=== PATIENT | male | born 1975 | race Caucasian/White ===

== ENCOUNTER 2017-01-04 08:19 | Day surgery (SDC) | payer BC ==
--- NOTE | 2017-01-02 04:51 | HP ---
DATE OF ADMISSION: CHIEF COMPLAINT: Rectal bleed. HISTORY OF PRESENT ILLNESS: The patient is a 41-year-old male who comes to the office complaining of painful bowel movements lately. He describes sharp pain at the anal opening. Last colonoscopy was 2008. He does have a personal history of colon polyps in the past. PAST MEDICAL HISTORY: Gout. PAST SURGICAL HISTORY: See list. MEDICATIONS: 1. Allopurinol. 2. Valier. 3. Indomethacin. ALLERGIES: None. PHYSICAL EXAM: HEENT is normocephalic. Sclerae anicteric. Chest is clear. HEART: Regular rate and rhythm. ABDOMEN: Soft, nontender, nondistended. IMPRESSION: A 41-year-old male with rectal bleeding. PLAN: Will schedule patient for colonoscopy on 01/04. The risks of bleeding and bowel perforation were discussed. The patient understands and wishes to proceed.
[2017-01-02 15:23] VITALS: BMI 36.9
[~2017-01-04 08:19] MED LIST: LACTATED RINGERS 1,000 ML IV SCH; LIDOCAINE 1% 20 ML VIAL (10MG/ML) FOR IV START INTRADERMA PRN
[2017-01-04 08:48] VITALS: RESP 18; TEMP 97.7
[2017-01-04] MEDS ORDERED: LACTATED RINGERS 1,000 ML IV ONE (08:49)
[2017-01-04] MEDS ORDERED: fentaNYL (PF) 50 MCG/ML 2 ML AMP ONE (09:07)
[2017-01-04] MEDS ORDERED: PROPOFOL 10 MG/ML 20 ML VIAL IV ONE (09:07)
[2017-01-04] MEDS ORDERED: MIDAZOLAM 2 MG/2 ML VIAL ONE (09:07)
--- NOTE | 2017-01-04 09:20 | P.PCN ---
Date of Procedure: 01/04/17 Procedure(s) Performed: PREOPERATIVE DIAGNOSIS: Rectal bleeding POSTOPERATIVE DIAGNOSIS: Posterior anal fissure PROCEDURE: Colonoscopy ANESTHESIA: MAC SURGEON: Tyron Good M.D. SPECIMENS: none ENDOSCOPIC PROCEDURE: The patient was placed on the endoscopy table in the left decubitus position. The Olympus colonoscope was inserted into the anus and passed under direct visualization to the base of the cecum. The appendiceal orifice was visualized. From that point the scope was slowly withdrawn inspecting all surfaces carefully. There were no neoplastic inflammatory or polypoid lesions throughout the cecum, ascending, transverse, descending, sigmoid and rectum. There was no diverticulosis noted. Digital rectal examination revealed a small anal fissure. The patient was taken to the recovery room in stable condition per anesthesia guidelines. RECOMMENDATIONS: Increase fiber. Prescription for nitroglycerin ointment.
[2017-01-04 09:53] VITALS: BP 126/75; PULSE 74
== END 2017-01-04 10:08 | disposition home or self-care (01) ==
LOC: ORWHC2ENDO 08:19
PROVIDERS: ATTEND Surgery
DX: K60.2 Anal fissure, unspecified (principal); M10.9 Gout, unspecified; Z79.1 Long term (current) use of non-steroidal anti-inflammatories (NSAID); Z79.891 Long term (current) use of opiate analgesic; Z79.899 Other long term (current) drug therapy
CPT/HCPCS: 45378; J2250; J3010; J2704

== ENCOUNTER → 2018-05-21 | Outpatient (CLI) | payer BC ==
--- NOTE | 2018-05-21 09:12 | MR ---
EXAMINATION TYPE: MR lumbar spine wo con DATE OF EXAM: 05/21/2018 COMPARISON: MRI lumbar spine April 26, 2016 HISTORY: Back pain, disc herniation, and bilateral lower extremity radiculopathy all per order. Back pain for 2 months per patient. TECHNIQUE: Multiplanar, multisequence imaging of the lumbar spine is performed without IV contrast. FINDINGS: Sagittal images of the lumbar spine show vertebral body heights and alignment to appear sta ble and satisfactory. There is increasing disc desiccation in the mid lumbar spine noted, there is pe rsistent disc desiccation in the lower lumbar spine. There is persistent mild to moderate disc space narrowing L4-L5 level and mild disc space narrowing L5-S1 level with annular tear L5-S1 level redemon strated as there is increased posterior signal. Small posterior disc herniation L4-L5 level is less p rominent on current study on sagittal images. No new disc herniations are present on sagittal images. The conus medullaris remains normal in position and signal ending at L1 level. The bone marrow sign al intensity is within normal limits. No significant spurring is seen. Axial images show the T12-L1, L1-L2, and L2-L3 levels all to appear within normal limits. Axial images at the L3-L4 level show mild broad disc bulge but spinal canal is preserved and bilatera l neural foramina are patent. No significant change from prior. Axial images at the L4-L5 level show mild broad disc bulge with less prominent central disc protrusio n component, there is minimal effacement of the anterior thecal sac. There is mild facet arthropathy bilaterally. Bilateral neural foramina are patent. Axial images at L5-S1 level demonstrate mild facet degenerative changes bilaterally. There is left pa racentral disc protrusion redemonstrated minimally effacing anterior thecal sac, there is asymmetric mild left-sided neural foraminal narrowing. Right-sided neural foramen is patent. No significant catherine ge from prior. No suspicious retroperitoneal findings are seen. Paraspinal muscle bulk is maintained. IMPRESSION: New disc desiccation mid lumbar spine. Improved disc herniation L4-L5 level is seen. No n ew suspicious disc herniations are identified.
== END | disposition home or self-care (01) ==
LOC: RADMRIMAIN 07:54
PROVIDERS: ATTEND Family Medicine
DX: M51.16 Intervertebral disc disorders with radiculopathy, lumbar region (principal)
CPT/HCPCS: 72148

== ENCOUNTER → 2018-10-17 | Outpatient (CLI) | payer BC ==
--- NOTE | 2018-10-17 11:07 | XR ---
EXAMINATION TYPE: XR sacrum coccyx DATE OF EXAM: 10/17/2018 CLINICAL HISTORY: Sacral and coccygeal pain TECHNIQUE: 3 views of the coccyx and sacrum were obtained COMPARISON: None. FINDINGS: There is slight posterior displacement 2 mm and posterior angulation of the most distal galina cygeal segment, likely from a subacute healing fracture. Remainder of the sacrum and coccyx appear un remarkable. No sacroiliac joint space widening. Minimal femoral acetabular arthropathy is noted. IMPRESSION: Minimally posterior displaced or angulated likely subacute healing coccyx fracture of the most distal coccygeal segment.
--- NOTE | 2018-10-17 11:08 | XR ---
EXAMINATION TYPE: XR lumbosacral spine min 4V DATE OF EXAM: 10/17/2018 CLINICAL HISTORY: Back pain TECHNIQUE: Frontal, lateral, and oblique images of the lumbar spine are obtained. COMPARISON: MRI of the lumbar spine dated 05/21/2018 FINDINGS: There are 5 lumbar type vertebral bodies identified. There is mild degenerative disc dise ase at and L5-S1 with facet arthropathy and slight intervertebral disc space narrowing. Very small an terior osteophytes are seen of L3-S1. The lumbar spine shows satisfactory alignment without evidence of acute fracture or dislocation. Vertebral body heights and disk space heights are within normal matthews its. The oblique images appear within normal limits. The overlying soft tissue appears unremarkabl e. IMPRESSION: No acute fracture or dislocation is seen in the lumbar spine. Mild degenerative disc dis ease at L5-S1.
== END | disposition home or self-care (01) ==
LOC: RADXRMAIN 09:42
PROVIDERS: ATTEND Family Medicine
DX: M51.37 Other intervertebral disc degeneration, lumbosacral region (principal); M54.5 Low back pain
CPT/HCPCS: 72110; 72220

== ENCOUNTER → 2020-08-03 | Outpatient (CLI) | payer BC | END | disposition home or self-care (01) | LOC: LABWHC1 16:04 | PROVIDERS: ATTEND Family Medicine | DX: Z20.828 Contact with and (suspected) exposure to other viral communicable diseases (principal) | CPT/HCPCS: U0003; C9803 ==

== ENCOUNTER → 2020-12-20 | Outpatient (CLI) | payer BC ==
[2020-12-20 21:02] LABS: Anti-DNA, DS unit <1.0 IU/mL; DNA Double-Stranded NEGATIVE (NEGATIVE)
[2020-12-20 21:58] LABS: Rheumatoid Factor, Qnt <4 IU/mL (0-15); Uric Acid 10.1 mg/dL (3.7-8.7)
[2020-12-21 07:47] LABS: Uric Acid 24 Hour,Urine 0.68 g/24Hr (0.25-0.75)
[2020-12-21 14:08] LABS: HLA B27 NEGATIVE
== END | disposition home or self-care (01) ==
LOC: LABWHC1 07:27
PROVIDERS: ATTEND Family Medicine
DX: M10.9 Gout, unspecified (principal)
CPT/HCPCS: 36415; 81050; 84550; 84560; 85652; 86038; 86225; 86431; 86812